=== PATIENT | female | born 1940 | race Caucasian/White ===

== ENCOUNTER 2020-06-07 01:04 | Inpatient (IN) | payer MEDICARE ==
[~2020-06-07] VITALS: Ht 160 cm; Wt 49.6 kg
[~2020-06-07 01:04] MED LIST: ACETAMINOPHEN #3; AEC81 PO; CLOBETASOL; DOCU100C33 PO; ESOM40CA PO; FLUDROCORTISONE PO; LEVO50TA11 PO; PREM625 PO; SUCR1TAB2 PO; TRAZ-187 PO
[2020-06-07 01:14] LABS: BASOPHILS % (AUTO) 0.4 % (0.0-5.0); EOSINOPHILS % (AUTO) 2.1 % (0.0-8.0); LYMPHOCYTES % (AUTO) 21.6 % (21.0-51.0); MEAN CORPUSCULAR HEMOGLOBIN 26.1 pg (27.0-33.0); MEAN CORPUSCULAR HGB CONC 31.8 g/dL (32.0-36.0); MEAN CORPUSCULAR VOLUME 81.9 fL (79-99); MONOCYTES % (AUTO) 8.6 % (3.0-13.0); PLATELET COUNT (AUTO) 317 K/uL (130-400); RED BLOOD CELL COUNT(AUTO) 4.03 MIL/uL (4.00-5.50)
[2020-06-07] MEDS ORDERED: ONDANSETRON 4MG INJ ONE (01:15)
[2020-06-07] MEDS ORDERED: NITROGLYCERIN 1GM OINT 1 INCH/1GM TD ONE (01:15)
[2020-06-07 01:24] LABS: CREATININE 1.2 mg/dL (0.5-1.5); POTASSIUM 3.8 mmol/L (3.5-5.1)
[2020-06-07 01:28] LABS: INR 0.98 (0.85-1.15); PROTHROMBIN TIME 10.7 SEC (9.6-11.6)
[2020-06-07 01:30] LABS: PARTIAL THROMBOPLASTIN TIME 24.2 SEC (26.3-35.5)
[2020-06-07 01:31] LABS: ALBUMIN 3.1 g/dL (3.5-5.0); BILIRUBIN,TOTAL 0.1 mg/dL (0.2-1.0); TOTAL PROTEIN, SERUM 7.3 g/dL (6.0-8.3)
[2020-06-07 01:41] LABS: B-TYPE NATRIURETIC PEPTIDE 128 pg/mL (0-100)
[2020-06-07] MEDS ORDERED: HYDRALAZINE 20MG/ML VIAL ONE (01:46)
[2020-06-07 01:48] LABS: APPEARANCE,URINE Clear (CLEAR); BILIRUBIN,URINE Negative (NEGATIVE); COLOR,URINE Yellow (YELLOW); GLUCOSE, URINE (UA) Negative (NEGATIVE); KETONES,URINE Negative (NEGATIVE); LEUKOCYTE ESTERASE ,URINE Trace (NEGATIVE); NITRATE,URINE Negative (NEGATIVE); OCCULT BLOOD,URINE Trace (NEGATIVE); PROTEIN,URINE Negative (NEGATIVE)
[2020-06-07 02:06] LABS: BACTERIA,URINE Few /HPF (None Seen); WBC,URINE 0-1 /HPF (0-1)
[2020-06-07] MEDS ORDERED: CEFTRIAXONE 1G VIAL ONE (02:29)
[2020-06-07] MEDS ORDERED: AZITHROMYCIN 500MG+NS 250ML 250 ML IV ONE (02:29)
[2020-06-07] MEDS ORDERED: IOHEXOL-350 75 ML VIAL IV ONE (03:35)
[2020-06-07] MEDS ORDERED: ONDANSETRON 4MG INJ IV PRN (05:15)
[2020-06-07] MEDS ORDERED: ACETAMINOPHEN 325 MG TAB PO PRN ×2 (05:15)
[2020-06-07] MEDS ORDERED: MORPHINE 2 MG SYG IV PRN (05:15)
[2020-06-07] MEDS ORDERED: DOXYCYCLINE 100MG+NS 250ML 250 ML IV ONE (05:35)
[2020-06-07] MEDS: NITROGLYCERIN 1GM OINT 1 INCH/1GM TD SCH ×2 (06:00→14:57)
[2020-06-07] MEDS: DOXYCYCLINE 100MG+NS 250ML 250 ML IV SCH ×2 (06:00→18:24)
[2020-06-07 06:01] LABS: HEMOGLOBIN A1C 5.6 % (4.0-6.0)
[2020-06-07 08:33] VITALS: BP 130/82
[2020-06-07] MEDS ORDERED: POTA-202 PO (08:46)
[2020-06-07] MEDS ORDERED: FESO4TAB PO (08:46)
[2020-06-07] MEDS ORDERED: LOVA10TA2 PO (08:46)
[2020-06-07] MEDS ORDERED: LEVO75CA5 PO (08:46)
[2020-06-07] MEDS ORDERED: TRAZ-185 PO (08:46)
[2020-06-07] MEDS ORDERED: PREMC VG (08:46)
[2020-06-07] MEDS ORDERED: MIDO10TA PO (08:46)
[2020-06-07] MEDS ORDERED: FLUD0.1T2 PO (08:46)
[2020-06-07] MEDS ORDERED: ENOXAPARIN SODIUM 60 MG/0.6 ML SQ SCH (09:00)
[2020-06-07] MEDS ORDERED: METOPROLOL TARTRATE 25 MG TAB PO SCH (09:00)
[2020-06-07] MEDS ORDERED: ASPIRIN 81MG CHEW TAB PO SCH (09:00)
[2020-06-07] MEDS: FAMOTIDINE 20MG VIAL IV SCH (09:29)
[2020-06-07 12:03] VITALS: BP 123/64
[2020-06-07] MEDS ORDERED: ESTROGENS,CONJUGATED 0.625 MG/GM 42.5 GM VAG CRM VG SCH (13:30)
[2020-06-07] MEDS ORDERED: DOCUSATE SODIUM 100 MG CAP PO PRN (13:30)
[2020-06-07] MEDS ORDERED: NON-FORMULARY MEDICATION 1 EACH (Midodrine HCl 10 MG) PO SCH (14:00)
[2020-06-07] MEDS: MIDODRINE HCL 5 MG TABLET PO SCH (14:58)
[2020-06-07] MEDS ORDERED: SODIUM CHLORIDE 3% FOR INHALATION 4 ML/AMP VIAL.NEB IH ONE ×3 (15:49→23:14)
[2020-06-07 16:09] VITALS: BP 164/65
[2020-06-07 19:32] VITALS: BP 113/54
[2020-06-07] MEDS: Lovastatin 10 MG PO SCH (21:00)
[2020-06-08] VITALS (17 sets, daily range): BP systolic 116–212; BP diastolic 52–87
[2020-06-08] MEDS: MIDODRINE HCL 5 MG TABLET PO SCH ×4 (01:36→21:12)
[2020-06-08] MEDS: TRAZODONE HCL 50 MG TAB PO SCH ×2 (01:37→21:12)
[2020-06-08] MEDS: KCL 20 MEQ ERTAB PO SCH ×3 (01:37→21:13)
[2020-06-08] MEDS: CEFTRIAXONE 1G VIAL IV SCH (01:37)
[2020-06-08] MEDS: NITROGLYCERIN 1GM OINT 1 INCH/1GM TD SCH ×4 (01:38→23:50)
[2020-06-08] MEDS: FLUDROCORTISONE ACETATE 0.1 MG TABLET PO SCH ×3 (01:42→21:12)
[2020-06-08 04:22] LABS: BASOPHILS % (AUTO) 0.7 % (0.0-5.0); EOSINOPHILS % (AUTO) 0.8 % (0.0-8.0); LYMPHOCYTES % (AUTO) 19.7 % (21.0-51.0); MEAN CORPUSCULAR HEMOGLOBIN 25.7 pg (27.0-33.0); MEAN CORPUSCULAR HGB CONC 30.7 g/dL (32.0-36.0); MEAN CORPUSCULAR VOLUME 83.8 fL (79-99); MONOCYTES % (AUTO) 12.7 % (3.0-13.0); NEUTROPHILS % (AUTO) 65.6 % (40.0-77.0); PLATELET COUNT (AUTO) 286 K/uL (130-400); RED BLOOD CELL COUNT(AUTO) 3.58 MIL/uL (4.00-5.50); RED CELL DISTRIBUTION WIDTH 16.2 % (11.0-15.5); WHITE BLOOD COUNT (AUTO) 9.6 K/uL (4.8-10.8)
[2020-06-08 04:36] LABS: INR 1.02 (0.85-1.15); PROTHROMBIN TIME 11.1 SEC (9.6-11.6)
[2020-06-08 05:10] LABS: B-TYPE NATRIURETIC PEPTIDE 86 pg/mL (0-100)
[2020-06-08 05:30] LABS: CREATININE 1.1 mg/dL (0.5-1.5); POTASSIUM 3.6 mmol/L (3.5-5.1)
[2020-06-08] MEDS: LEVOTHYROXINE 75 MCG TABLET PO SCH (06:24)
[2020-06-08] MEDS: DOXYCYCLINE 100MG+NS 250ML 250 ML IV SCH ×2 (06:24→16:55)
[2020-06-08] MEDS ORDERED: NON-FORMULARY MEDICATION 1 EACH (Levothyroxine Sodium (Levothyroxine) 75 MCG) PO SCH (09:00)
[2020-06-08] MEDS ORDERED: MIDAZOLAM HCL 1 MG/ML 2ML VIAL ONE (12:06)
[2020-06-08] MEDS ORDERED: FENTANYL CITRATE PF 50 MCG/1 ML 2ML VIAL ONE (12:06)
[2020-06-08] MEDS: FAMOTIDINE 20MG VIAL IV SCH (13:44)
[2020-06-08] MEDS: PANTOPRAZOLE 40 MG TAB DR PO SCH (13:45)
[2020-06-08] MEDS: METOPROLOL TARTRATE 25 MG TAB PO SCH ×2 (13:47→21:12)
[2020-06-08] MEDS: ENOXAPARIN SODIUM 30 MG/0.3 ML SQ SCH (13:48)
[2020-06-08] MEDS ORDERED: LABETALOL 20MG SYG IV PRN (16:30)
[2020-06-08] MEDS: Lovastatin 10 MG PO SCH (21:13)
[2020-06-09] VITALS: BP 165/103
[2020-06-09] MEDS: CEFTRIAXONE 1G VIAL IV SCH (00:02)
[2020-06-09 04:00] VITALS: BP 172/84
[2020-06-09 04:52] LABS: BASOPHILS % (AUTO) 0.4 % (0.0-5.0); HEMATOCRIT 31.3 % (36-48); LYMPHOCYTES % (AUTO) 17.5 % (21.0-51.0); MEAN CORPUSCULAR HEMOGLOBIN 25.5 pg (27.0-33.0); MEAN CORPUSCULAR VOLUME 82.2 fL (79-99); MONOCYTES % (AUTO) 15.3 % (3.0-13.0); NEUTROPHILS % (AUTO) 65.4 % (40.0-77.0); PLATELET COUNT (AUTO) 254 K/uL (130-400); RED BLOOD CELL COUNT(AUTO) 3.81 MIL/uL (4.00-5.50); RED CELL DISTRIBUTION WIDTH 16.3 % (11.0-15.5); WHITE BLOOD COUNT (AUTO) 10.1 K/uL (4.8-10.8)
[2020-06-09 05:22] LABS: POTASSIUM 3.3 mmol/L (3.5-5.1)
[2020-06-09] MEDS ORDERED: LIDOCAINE HCL-MPF 1% 2ML VIAL IV PRN (05:45)
[2020-06-09] MEDS ORDERED: POTASSIUM CHLORIDE 10% ELIXIR 20 MEQ/15 ML UDCUP PO PRN (05:45)
[2020-06-09] MEDS ORDERED: POTASSIUM CHLORIDE 20MEQ/100ML 100 ML IV PRN (05:45)
[2020-06-09] MEDS ORDERED: KCL 20 MEQ ERTAB PO PRN (05:45)
[2020-06-09] MEDS: LEVOTHYROXINE 75 MCG TABLET PO SCH (05:53)
[2020-06-09] MEDS: DOXYCYCLINE 100MG+NS 250ML 250 ML IV SCH (05:53)
[2020-06-09 08:00] VITALS: BP 153/74
[2020-06-09] MEDS: FLUDROCORTISONE ACETATE 0.1 MG TABLET PO SCH (08:47)
[2020-06-09] MEDS: MIDODRINE HCL 5 MG TABLET PO SCH (08:47)
[2020-06-09] MEDS: KCL 20 MEQ ERTAB PO SCH (08:47)
[2020-06-09] MEDS: PANTOPRAZOLE 40 MG TAB DR PO SCH (08:47)
[2020-06-09] MEDS: FAMOTIDINE 20MG VIAL IV SCH ×2 (08:47→09:00)
[2020-06-09] MEDS: ENOXAPARIN SODIUM 30 MG/0.3 ML SQ SCH (08:48)
[2020-06-09] MEDS: METOPROLOL TARTRATE 25 MG TAB PO SCH (08:48)
[2020-06-09] MEDS: NITROGLYCERIN 1GM OINT 1 INCH/1GM TD SCH (08:49)
[2020-06-09] MEDS ORDERED: MIDO5TAB4 PO (10:27)
[2020-06-09] MEDS ORDERED: LABE100T5 PO (10:27)
[2020-06-09] MEDS ORDERED: LABETALOL HCL 100 MG TABLET PO SCH (10:30)
[2020-06-09] MEDS ORDERED: DOXY100C5 PO (10:59)
[2020-06-09 11:57] VITALS: BP 163/88
== END 2020-06-09 14:33 | disposition home or self-care (01) | DRG 689 ==
LOC: EDH 01:04 → EDHIP 05:12 → 4CH 08:30
PROVIDERS: ADMIT Internal Medicine; ATTEND Internal Medicine
PROC: 0BBK3ZX Excision of Right Lung, Percutaneous Approach, Diagnostic (ICD-10-PCS; principal; 2020-06-08)
DX: N39.0 Urinary tract infection, site not specified (principal); G93.41 Metabolic encephalopathy; J90 Pleural effusion, not elsewhere classified; E44.1 Mild protein-calorie malnutrition; Z68.1 Body mass index [BMI] 19.9 or less, adult; J98.11 Atelectasis; I74.11 Embolism and thrombosis of thoracic aorta; I74.19 Embolism and thrombosis of other parts of aorta; I24.8 Other forms of acute ischemic heart disease; I16.0 Hypertensive urgency; J43.9 Emphysema, unspecified; F03.90 Unspecified dementia, unspecified severity, without behavioral disturbance, psychotic disturbance, mood disturbance, and anxiety; Z82.49 Family history of ischemic heart disease and other diseases of the circulatory system; Z82.0 Family history of epilepsy and other diseases of the nervous system; Z82.5 Family history of asthma and other chronic lower respiratory diseases; Z83.3 Family history of diabetes mellitus; Z82.3 Family history of stroke; Z90.49 Acquired absence of other specified parts of digestive tract; Z90.710 Acquired absence of both cervix and uterus; R79.89 Other specified abnormal findings of blood chemistry; I25.10 Atherosclerotic heart disease of native coronary artery without angina pectoris; R91.1 Solitary pulmonary nodule; I10 Essential (primary) hypertension; I95.1 Orthostatic hypotension; Z95.5 Presence of coronary angioplasty implant and graft; Z79.52 Long term (current) use of systemic steroids; Z79.899 Other long term (current) drug therapy; Z74.01 Bed confinement status; R53.81 Other malaise; M54.9 Dorsalgia, unspecified; E03.9 Hypothyroidism, unspecified; Z88.0 Allergy status to penicillin; D64.9 Anemia, unspecified; Z20.822 Contact with and (suspected) exposure to COVID-19
CPT/HCPCS: 32405; 36415; 71045; 71250; 71275; 77012; 80048; 80053; 81001; 82550; 83036; 83880; 84145; 84484; 85025; 85378; 85610; 85730; 86140; 87040; 87088; 87426; 88305; 88312; 93005; 93306; 93356; 94640; 97039; G0378; J0360; J0456; J0696; J1650; J2250; J2405; J3010; J3490; Q9967; U0003

== ENCOUNTER 2023-04-21 21:20 | Inpatient (IN) | payer MEDICARE ==
[~2023-04-21] VITALS: Ht 162.6 cm; Wt 48.7 kg
[~2023-04-21 21:20] MED LIST changes: -ACETAMINOPHEN #3; -CLOBETASOL; +DOXY100C5 PO; +FESO4TAB PO; +FLUD0.1T2 PO; -FLUDROCORTISONE PO; +LABE100T7 PO; -LEVO50TA11 PO; +LEVO75CA5 PO; +LOVA10TA2 PO; +MIDO5TAB4 PO; +POTA-202 PO; -PREM625 PO; +PREMC VG; -SUCR1TAB2 PO; +TRAZ-185 PO; -TRAZ-187 PO
[2023-04-21 22:13] LABS: BASOPHILS # (AUTO) 0.05 K/uL (0.00-0.20); BASOPHILS % (AUTO) 0.3 % (0.0-5.0); EOSINOPHILS # (AUTO) 0.04 K/uL (0.00-0.70); EOSINOPHILS % (AUTO) 0.3 % (0.0-8.0); HEMATOCRIT 35.8 % (36-48); IMMATURE GRANULOCYTE ABSOLUTE 0.26 K/uL (0-1); LYMPHOCYTES # (AUTO) 0.7 K/uL (1.0-4.8); LYMPHOCYTES % (AUTO) 4.6 % (21.0-51.0); MEAN CORPUSCULAR HEMOGLOBIN 31.7 pg (27.0-33.0); MEAN CORPUSCULAR HGB CONC 31.3 g/dL (32.0-36.0); MEAN CORPUSCULAR VOLUME 101.4 fL (79-99); MONOCYTES # (AUTO) 1.2 K/uL (0.1-1.0); MONOCYTES % (AUTO) 7.9 % (3.0-13.0); NEUTROPHILS # (AUTO) 13.4 K/uL (1.8-7.7); NEUTROPHILS % (AUTO) 85.2 % (40.0-77.0); PLATELET COUNT (AUTO) 300 K/uL (130-400); RED BLOOD CELL COUNT(AUTO) 3.53 MIL/uL (4.00-5.50); RED CELL DISTRIBUTION WIDTH 14.4 % (11.0-15.5); WHITE BLOOD COUNT (AUTO) 15.7 K/uL (4.8-10.8)
[2023-04-21 22:23] LABS: CREATININE 1.6 mg/dL (0.5-1.5); POTASSIUM 3.7 mmol/L (3.5-5.1)
[2023-04-21 22:38] LABS: THYROID STIMULATING HORMONE 0.85 uIU/mL (0.36-3.74)
[2023-04-21] MEDS: NACL IV ONE (22:41)
[2023-04-21] MEDS ORDERED: IOHEXOL 350 MG/ML 100ML INFUS..BTL IV ONE (22:49)
[2023-04-21 23:49] LABS: APPEARANCE,URINE CLEAR (CLEAR); BILIRUBIN,URINE NEGATIVE (NEGATIVE); COLOR,URINE LIGHT-YELLOW (YELLOW); GLUCOSE, URINE (UA) NEGATIVE (NEGATIVE); KETONES,URINE 20 mg/dL (NEGATIVE); LEUKOCYTE ESTERASE ,URINE NEGATIVE Leu/uL (NEGATIVE); NITRATE,URINE NEGATIVE (NEGATIVE); OCCULT BLOOD,URINE SMALL (NEGATIVE); PROTEIN,URINE 20 mg/dL (NEGATIVE); UROBILINOGEN,URINE 0.2 mg/dL (0.2-1.0)
[2023-04-21 23:50] LABS: ADD UA MICROSCOPIC YES
[2023-04-21 23:52] LABS: MUCUS,URINE RARE LPF (None Seen); SQUAMOUS EPITHELIAL CELL,UR RARE /HPF (0-2)
[2023-04-22] VITALS (29 sets, daily range): BP systolic 82–182; BP diastolic 37–118; PULSE 76–135; RESP 13–51; O2SAT 97–98
[2023-04-22 00:39] LABS: RAPID GROUP A STREP negative (NEGATIVE)
[2023-04-22 00:48] LABS: COVID19 (SARS ANTIGEN RAPID) PRESUMPTIVE NEGATIVE (NEGATIVE); INFLUENZA TYPE A Negative For Type A (NEGATIVE); INFLUENZA TYPE B Negative For Type B (NEGATIVE)
[2023-04-22] MEDS: HYDRALAZINE 20MG/ML VIAL IV PRN ×2 (03:58→10:40)
[2023-04-22] MEDS ORDERED: ONDANSETRON 4MG INJ IV PRN (04:00)
[2023-04-22] MEDS ORDERED: GLUCAGON 1MG KIT 1 MG ML IM PRN (04:00)
[2023-04-22] MEDS ORDERED: ACETAMINOPHEN 325 MG TAB PO PRN (04:00)
[2023-04-22] MEDS: POTASSIUM CHLORIDE 10% ELIXIR 20 MEQ/15 ML UDCUP PO PRN (05:15)
[2023-04-22] MEDS: 0.9%NACL 1000ML 1,000 ML IV SCH (05:16)
[2023-04-22] MEDS: LEVOFLOXACIN 500 MG/D5W 100 ML 100 ML IV SCH (05:16)
[2023-04-22 05:54] LABS: BASOPHILS # (AUTO) 0.03 K/uL (0.00-0.20); BASOPHILS % (AUTO) 0.2 % (0.0-5.0); EOSINOPHILS # (AUTO) 0.01 K/uL (0.00-0.70); EOSINOPHILS % (AUTO) 0.1 % (0.0-8.0); HEMATOCRIT 31.7 % (36-48); IMMATURE GRANULOCYTE ABSOLUTE 0.16 K/uL (0-1); LYMPHOCYTES # (AUTO) 0.9 K/uL (1.0-4.8); MEAN CORPUSCULAR HEMOGLOBIN 31.1 pg (27.0-33.0); MEAN CORPUSCULAR HGB CONC 31.5 g/dL (32.0-36.0); MEAN CORPUSCULAR VOLUME 98.4 fL (79-99); MONOCYTES % (AUTO) 6.8 % (3.0-13.0); NEUTROPHILS # (AUTO) 12.2 K/uL (1.8-7.7); NEUTROPHILS % (AUTO) 85.8 % (40.0-77.0); PLATELET COUNT (AUTO) 264 K/uL (130-400); RED BLOOD CELL COUNT(AUTO) 3.22 MIL/uL (4.00-5.50); RED CELL DISTRIBUTION WIDTH 14.3 % (11.0-15.5); WHITE BLOOD COUNT (AUTO) 14.2 K/uL (4.8-10.8)
[2023-04-22 06:22] LABS: HEMOGLOBIN A1C 5.1 % (4.0-6.0)
[2023-04-22 06:24] LABS: ALBUMIN 2.3 g/dL (3.5-5.0); BILIRUBIN,TOTAL 0.5 mg/dL (0.2-1.0); CREATININE 1.3 mg/dL (0.5-1.5); MAGNESIUM 1.7 mg/dL (1.80-2.40); POTASSIUM 3.3 mmol/L (3.5-5.1); THYROID STIMULATING HORMONE 0.41 uIU/mL (0.36-3.74); TOTAL PROTEIN, SERUM 7.1 g/dL (6.0-8.3)
[2023-04-22] MEDS: MAGNESIUM 2GM PREMIX 50ML 50 ML IV PRN (06:55)
[2023-04-22] MEDS: INSULIN HUMULIN R 100 UNIT/ML 3ML SQ SCH (07:23)
[2023-04-22] MEDS ORDERED: MAGNESIUM 2GM PREMIX 50ML 50 ML IV SCH (08:00)
[2023-04-22] MEDS ORDERED: POTASSIUM CHLORIDE 20MEQ/100ML 100 ML IV ONE (08:00)
[2023-04-22] MEDS: FAMOTIDINE 20MG VIAL IV SCH ×2 (08:36→20:19)
[2023-04-22] MEDS ORDERED: 0.9% NACL 500ML IV.SOLN 500 ML IV SCH (13:30)
[2023-04-22] MEDS: METOPROLOL TARTRATE 1 MG/ML 5ML VIAL IV ONE ×3 (13:41→14:50)
[2023-04-22] MEDS ORDERED: METOPROLOL TARTRATE 1 MG/ML 5ML VIAL IV PRN (15:00)
[2023-04-22] MEDS: AMIODARONE 900MG VIAL 360 MG in DEXTROSE 5%-WATER 200 ML IV SCH (15:16)
[2023-04-22] MEDS: LACTATED RINGERS 1000ML 1,000 ML IV SCH (17:06)
[2023-04-22 19:45] LABS: INR 1.06 (0.85-1.15); PROTHROMBIN TIME 12.3 SEC (9.6-11.6)
[2023-04-22] MEDS: AMIODARONE 900MG VIAL 540 MG in DEXTROSE 5%-WATER 300 ML IV SCH (19:50)
[2023-04-22] MEDS ORDERED: MIDODRINE HCL 5 MG TABLET PO SCH (21:00)
[2023-04-23] VITALS (37 sets, daily range): BP systolic 108–178; BP diastolic 52–97; PULSE 66–80; RESP 12–26; O2SAT 98–100
[2023-04-23 05:04] LABS: HEMATOCRIT 31.6 % (36-48); MEAN CORPUSCULAR HEMOGLOBIN 31.8 pg (27.0-33.0); MEAN CORPUSCULAR HGB CONC 32.6 g/dL (32.0-36.0); MEAN CORPUSCULAR VOLUME 97.5 fL (79-99); RED BLOOD CELL COUNT(AUTO) 3.24 MIL/uL (4.00-5.50); RED CELL DISTRIBUTION WIDTH 14.4 % (11.0-15.5); WHITE BLOOD COUNT (AUTO) 14.7 K/uL (4.8-10.8)
[2023-04-23 05:25] LABS: ALBUMIN 2.2 g/dL (3.5-5.0); BILIRUBIN,TOTAL 0.4 mg/dL (0.2-1.0); CREATININE 1.1 mg/dL (0.5-1.5); MAGNESIUM 2.2 mg/dL (1.80-2.40); POTASSIUM 3.6 mmol/L (3.5-5.1); TOTAL PROTEIN, SERUM 6.8 g/dL (6.0-8.3)
[2023-04-23] MEDS: KCL 20 MEQ ERTAB PO PRN (06:55)
[2023-04-23] MEDS: MIDODRINE HCL 5 MG TABLET PO SCH (08:22)
[2023-04-23] MEDS: AMLODIPINE 5 MG TAB PO SCH (08:22)
[2023-04-23] MEDS: ENOXAPARIN SODIUM 30 MG/0.3 ML SQ SCH (08:23)
[2023-04-23] MEDS ORDERED: ASPIRIN 81 MG EC TAB PO SCH (09:00)
[2023-04-23] MEDS: ASPIRIN 325MG EC TAB PO SCH (09:05)
[2023-04-23] MEDS ORDERED: METOPROLOL TARTRATE 25 MG TAB PO SCH (10:30)
[2023-04-23] MEDS: METOPROLOL TARTRATE 25 MG TAB PO ONE (11:21)
[2023-04-23] MEDS: DEXTROSE 50%-WATER 50 ML DISP.SYRIN IV PRN (19:21)
[2023-04-23] MEDS: METOPROLOL TARTRATE 25 MG TAB PO SCH (19:22)
[2023-04-23] MEDS: ALPRAZOLAM 0.5 MG TABLET PO ONE (21:40)
[2023-04-23] MEDS ORDERED: DEXMEDETOMIDINE 400MCG/NS100ML IV SCH (23:00)
[2023-04-23] MEDS: DEXMEDETOMIDINE 400MCG/NS100ML IV ONE (23:26)
[2023-04-24] VITALS (39 sets, daily range): BP systolic 82–153; BP diastolic 37–77; PULSE 54–71; RESP 11–26; O2SAT 97–100
[2023-04-24 06:15] LABS: BASOPHILS # (AUTO) 0.03 K/uL (0.00-0.20); BASOPHILS % (AUTO) 0.3 % (0.0-5.0); EOSINOPHILS # (AUTO) 0.06 K/uL (0.00-0.70); EOSINOPHILS % (AUTO) 0.6 % (0.0-8.0); IMMATURE GRANULOCYTE ABSOLUTE 0.15 K/uL (0-1); LYMPHOCYTES # (AUTO) 0.8 K/uL (1.0-4.8); LYMPHOCYTES % (AUTO) 7.4 % (21.0-51.0); MEAN CORPUSCULAR HEMOGLOBIN 31.3 pg (27.0-33.0); MEAN CORPUSCULAR HGB CONC 31.9 g/dL (32.0-36.0); MEAN CORPUSCULAR VOLUME 98.1 fL (79-99); MONOCYTES # (AUTO) 0.8 K/uL (0.1-1.0); MONOCYTES % (AUTO) 7.8 % (3.0-13.0); NEUTROPHILS # (AUTO) 8.8 K/uL (1.8-7.7); NEUTROPHILS % (AUTO) 82.5 % (40.0-77.0); PLATELET COUNT (AUTO) 262 K/uL (130-400); RED BLOOD CELL COUNT(AUTO) 3.16 MIL/uL (4.00-5.50); RED CELL DISTRIBUTION WIDTH 14.6 % (11.0-15.5); WHITE BLOOD COUNT (AUTO) 10.6 K/uL (4.8-10.8)
[2023-04-24 06:29] LABS: CREATININE 1.1 mg/dL (0.5-1.5); MAGNESIUM 1.9 mg/dL (1.80-2.40); POTASSIUM 3.8 mmol/L (3.5-5.1)
[2023-04-24 07:42] LABS: ABG OXYGEN SATURATION 99.3 % (95.0-99.0); ABG PCO2 35 mmHg (32-45); ABG PH 7.329 (7.35-7.450); PO2, ARTERIAL BG 201.4 mmHg (83.0-108.0); VENT MODE, BG NRM (ROOM AIR)
[2023-04-24] MEDS: ACETAMINOPHEN 325 MG TAB PO PRN (13:33)
[2023-04-24] MEDS: METRONIDAZOLE 500MG/100ML BAG 100 ML IVPB SCH (17:10)
[2023-04-24] MEDS: SODIUM CHLORIDE 3% FOR INHALATION 4 ML/AMP VIAL.NEB IH ONE (18:18)
[2023-04-25] VITALS (10 sets, daily range): BP systolic 19–148; BP diastolic 53–75; PULSE 60–71; RESP 16–19; O2SAT 97–100
[2023-04-25] MEDS: LEVOFLOXACIN 250 MG/D5W 50ML 50 ML IVPB SCH (05:52)
[2023-04-25] MEDS: SODIUM CHLORIDE 3% FOR INHALATION 4 ML/AMP VIAL.NEB IH ONE (19:32)
[2023-04-26] VITALS (9 sets, daily range): BP systolic 138–155; BP diastolic 61–74; PULSE 62–71; RESP 18; O2SAT 96–99
[2023-04-26] MEDS: SODIUM CHLORIDE 3% FOR INHALATION 4 ML/AMP VIAL.NEB IH ONE (07:25)
[2023-04-26] MEDS: MULTIVITAMIN TABLET PO SCH (08:34)
[2023-04-26] MEDS: THIAMINE HCL 100 MG TABLET PO SCH (08:34)
[2023-04-27] VITALS (8 sets, daily range): BP systolic 110–168; BP diastolic 45–78; PULSE 68–76; RESP 17–20; O2SAT 99
[2023-04-27] MEDS: SENNOSIDES 8.6 MG TABLET PO SCH ×2 (15:19→20:07)
[2023-04-27] MEDS: MIDODRINE HCL 5 MG TABLET PO ONE (15:19)
[2023-04-28] VITALS (8 sets, daily range): BP systolic 150–186; BP diastolic 60–83; PULSE 67–81; RESP 16–20; O2SAT 96–97
[2023-04-29] VITALS (8 sets, daily range): BP systolic 120–160; BP diastolic 49–70; PULSE 66–84; RESP 16–20; O2SAT 95–96
[2023-04-29 08:54] LABS: BASOPHILS # (AUTO) 0.07 K/uL (0.00-0.20); BASOPHILS % (AUTO) 0.6 % (0.0-5.0); EOSINOPHILS # (AUTO) 0.29 K/uL (0.00-0.70); EOSINOPHILS % (AUTO) 2.5 % (0.0-8.0); HEMATOCRIT 30.5 % (36-48); IMMATURE GRANULOCYTE ABSOLUTE 0.13 K/uL (0-1); LYMPHOCYTES # (AUTO) 1.7 K/uL (1.0-4.8); LYMPHOCYTES % (AUTO) 15.2 % (21.0-51.0); MEAN CORPUSCULAR HEMOGLOBIN 31.2 pg (27.0-33.0); MEAN CORPUSCULAR HGB CONC 31.5 g/dL (32.0-36.0); MONOCYTES # (AUTO) 1.1 K/uL (0.1-1.0); MONOCYTES % (AUTO) 9.4 % (3.0-13.0); NEUTROPHILS # (AUTO) 8.1 K/uL (1.8-7.7); NEUTROPHILS % (AUTO) 71.2 % (40.0-77.0); PLATELET COUNT (AUTO) 267 K/uL (130-400); RED BLOOD CELL COUNT(AUTO) 3.08 MIL/uL (4.00-5.50); RED CELL DISTRIBUTION WIDTH 15.1 % (11.0-15.5); WHITE BLOOD COUNT (AUTO) 11.4 K/uL (4.8-10.8)
[2023-04-29 09:10] LABS: ALBUMIN 2.1 g/dL (3.5-5.0); ASPARTATE AMINOTRANSFERASE 17 U/L (10-37); BILIRUBIN,TOTAL 0.5 mg/dL (0.2-1.0); CARBON DIOXIDE 24 mmol/L (21-32); CHLORIDE 109 mmol/L (101-111); CREATININE 1.2 mg/dL (0.5-1.5); GLOMERULAR FILTR. RATE CALC 45 mL/min (>90); GLUCOSE,RANDOM 79 mg/dL (70-105); SODIUM SERUM 142 mmol/L (136-145); UREA NITROGEN, BLOOD 19 mg/dL (7-18)
[2023-04-29 09:11] LABS: ALANINE AMINOTRANSFERASE < 6 U/L (12-78)
[2023-04-29 09:14] LABS: POTASSIUM 2.6 mmol/L (3.5-5.1)
[2023-04-29] MEDS: POTASSIUM CHLORIDE 20MEQ/100ML 100 ML IV PRN (09:38)
[2023-04-30] VITALS (7 sets, daily range): BP systolic 131–162; BP diastolic 59–90; PULSE 70–77; RESP 18–20; O2SAT 93–97
[2023-04-30 04:16] LABS: MAGNESIUM 2.3 mg/dL (1.80-2.40); POTASSIUM 3.7 mmol/L (3.5-5.1)
[2023-04-30] MEDS ORDERED: ONDANSETRON 4MG TABLET PO PRN (14:30)
[2023-04-30] MEDS: FAMOTIDINE 20MG TAB PO SCH (21:04)
[2023-05-01] VITALS (7 sets, daily range): BP systolic 124–183; BP diastolic 59–76; PULSE 70–76; RESP 16–18; O2SAT 95
== END 2023-05-01 18:30 | DRG 199 ==
LOC: EDH 21:20 → EDHIP 04-22 03:46 → 2CH 04-22 07:30 → 4AH 04-24 21:26
PROVIDERS: ADMIT Internal Medicine; ATTEND Internal Medicine
DX: S27.0XXA Traumatic pneumothorax, initial encounter (principal); E43 Unspecified severe protein-calorie malnutrition; S22.5XXA Flail chest, initial encounter for closed fracture; G93.41 Metabolic encephalopathy; J18.9 Pneumonia, unspecified organism; N17.9 Acute kidney failure, unspecified; J44.0 Chronic obstructive pulmonary disease with (acute) lower respiratory infection; R64 Cachexia; Z68.1 Body mass index [BMI] 19.9 or less, adult; I11.9 Hypertensive heart disease without heart failure; J43.8 Other emphysema; I71.23 Aneurysm of the descending thoracic aorta, without rupture; K57.30 Diverticulosis of large intestine without perforation or abscess without bleeding; D64.9 Anemia, unspecified; E83.42 Hypomagnesemia; E87.6 Hypokalemia; F03.90 Unspecified dementia, unspecified severity, without behavioral disturbance, psychotic disturbance, mood disturbance, and anxiety; I48.0 Paroxysmal atrial fibrillation; I25.10 Atherosclerotic heart disease of native coronary artery without angina pectoris; R29.6 Repeated falls; R62.7 Adult failure to thrive; Z82.49 Family history of ischemic heart disease and other diseases of the circulatory system; Z88.0 Allergy status to penicillin; Z90.710 Acquired absence of both cervix and uterus; Z91.81 History of falling; Z88.8 Allergy status to other drugs, medicaments and biological substances; E78.5 Hyperlipidemia, unspecified
CPT/HCPCS: 36415; 36600; 70450; 71045; 71260; 72125; 73030; 74177; 80048; 80053; 80061; 81001; 82306; 82533; 82550; 82803; 82948; 83036; 83605; 83735; 84132; 84145; 84443; 84484; 85025; 85027; 85610; 87040; 87426; 87804; 87880; 92610; 93005; 93306; 93880; 94640; C1894; G0378; J0282; J0360; J1650; J1956; J3475; J3480; J3490; J7030; J7060; J7070; Q9967